=== PATIENT | female | born 1980 | race Two or more races ===

== ENCOUNTER 2016-10-05 02:42 | Emergency (ER) | payer MEDICAID ==
[2016-10-05] MEDS ORDERED: KETOROLAC TROMETHAMINE 60 MG/2 ML VIAL ONE (03:26)
--- NOTE | 2016-10-05 07:51 | RAD ---
10/05/2016 7:47 AM CHEST - 2 VIEWS History: Chest pain and shortness of breath for 2 days. Worsening this evening. Comparison: None Findings: Two views of the chest are obtained. The lungs are clear with out effusion or pneumothorax. The cardiomediastinal silhouette is unremarkable.. The osseous structures are intact.. IMPRESSION: No acute intrathoracic process.
== END 2016-10-05 04:34 | disposition home or self-care (01) ==
LOC: ED 02:42
DX: R07.9 Chest pain, unspecified (principal); E78.5 Hyperlipidemia, unspecified; E11.9 Type 2 diabetes mellitus without complications; E78.00 Pure hypercholesterolemia, unspecified; I10 Essential (primary) hypertension
CPT/HCPCS: 71020; 99283; 96372; 93005; 99284; J1885